=== PATIENT | female | born 2000 | race Caucasian/White ===

== ENCOUNTER 2022-05-12 07:03 | Emergency (ER) | payer OTHER ==
[2022-05-12] MEDS ORDERED: CYCLOBENZAPRINE 10 MG TAB PO STA (07:38)
[2022-05-12] MEDS ORDERED: KETOROLAC 15 MG/ML 1 ML VIAL IVP STA (07:38)
[2022-05-12] MEDS ORDERED: predniSONE 50 MG TAB PO STA (07:38)
--- NOTE | 2022-05-12 07:41 | ED ---
Back Pain HPI - General Chief Complaint: Back Pain/Injury Stated Complaint: back pain Time Seen by Provider: 05/12/22 07:20 Source: patient Limitations: no limitations - History of Present Illness Initial Comments: 21 year old female presents with reproducible low back pain. States she was at work bending when she heard a pop and started having pain running down her left leg. No saddle anesthesia. No bowel or bladder dysfunction. No fever. No le weakness. no concern for - Related Data Home Medications Medication Instructions Recorded Confirmed Naproxen Sodium [Aleve] 220 mg PO BID PRN 05/12/22 05/12/22 Previous Rx's Medication Instructions Recorded Cyclobenzaprine [Flexeril] 10 mg PO TID PRN #20 tab 05/12/22 Ibuprofen [Motrin] 600 mg PO Q8HR PRN #30 tab 05/12/22 Allergies Allergy/AdvReac Type Severity Reaction Status Date / Time No Known Allergies Allergy Verified 05/12/22 07:38 Review of Systems ROS Statement: Those systems with pertinent positive or pertinent negative responses have been documented in the HPI. ROS Other: All systems not noted in ROS Statement are negative. Past Medical History Past Medical History: No Reported History History of Any Multi-Drug Resistant Organisms: None Reported Past Surgical History: Tonsillectomy Past Psychological History: No Psychological Hx Reported Smoking Status: Vaper Past Alcohol Use History: None Reported Past Drug Use History: None Reported General Exam Limitations: no limitations General appearance: alert, in no apparent distress Head exam: Present: atraumatic, normocephalic, normal inspection Eye exam: Present: normal appearance, PERRL, EOMI. Absent: scleral icterus, conjunctival injection, periorbital swelling ENT exam: Present: normal exam, mucous membranes moist Neck exam: Present: normal inspection. Absent: tenderness, meningismus, lymphadenopathy Respiratory exam: Present: normal lung sounds bilaterally. Absent: respiratory distress, wheezes, rales, rhonchi, stridor Cardiovascular Exam: Present: regular rate, normal rhythm, normal heart sounds. Absent: systolic murmur, diastolic murmur, rubs, gallop, clicks GI/Abdominal exam: Present: soft, normal bowel sounds. Absent: distended, tenderness, guarding, rebound, rigid Extremities exam: Present: normal inspection, full ROM, normal capillary refill. Absent: tenderness, pedal edema, joint swelling, calf tenderness Back exam: Present: CVA tenderness (L), paraspinal tenderness Neurological exam: Present: alert, oriented X3, CN II-XII intact Psychiatric exam: Present: normal affect, normal mood Skin exam: Present: warm, dry, intact, normal color. Absent: rash Course Vital Signs 05/12/22 05/12/22 07:17 08:00 Temperature 98.2 F 97.9 F Pulse Rate 99 93 Respiratory 20 18 Rate Blood Pressure 138/78 113/61 O2 Sat by Pulse 97 96 Oximetry Medical Decision Making - Medical Decision Making Was pt. sent in by a medical professional or institution (, [facility], [facility]ELLER, urgent care, hospital, or intermediate...) When possible be specific @ -No Did you speak to anyone other than the patient for history (EMS, parent, family, police, friend...)? What history was obtained from this source @ -No Did you review nursing and triage notes (agree or disagree)? Why? @ -I reviewed and agree with nursing and triage notes Were old charts reviewed (outside hosp., previous admission, EMS record, old EKG, old radiological studies, urgent care reports/EKG's, intermediate records)? Report findings @ -No old charts were reviewed Differential Diagnosis (chest pain, altered mental status, abdominal pain women, abdominal pain men, vaginal bleeding, weakness, fever, dyspnea, syncope, headache, dizziness, GI bleed, back pain, seizure, CVA, palpatations, mental health, musculoskeletal)? @ -mechanical back pain, sciatica, lumbar radiculopathy EKG interpreted by me (3pts min.). @ -No X-rays interpreted by me (1pt min.). @ -None done CT interpreted by me (1pt min.). @ -None done U/S interpreted by me (1pt. min.). @ -None done What testing was considered but not performed or refused? (CT, X-rays, U/S, labs)? Why? @ -None What meds were considered but not given or refused? Why? @ -None Did you discuss the management of the patient with other professionals (professionals i.e. [facility] Walsh, [facility] B[facility]ELLER, lab, RT, psych nurse, social sciences research scientist, parking enforcement technician, teacher, fisheries officer, case packer and sealer)? Give summary @ -No Was smoking cessation discussed for >3mins.? @ -No Was critical care preformed (if so, how long)? @ -No Were there social determinants of health that impacted care today? How? (Homelessness, low income, unemployed, alcoholism, drug addiction, transportation, low edu. Level, literacy, decrease access to med. care, nursing home, rehab)? @ -No Was there de-escalation of care discussed even if they declined (Discuss DNR or withdrawal of care, Hospice)? DNR status @ -No What co-morbidities impacted this encounter? (DM, HTN, Smoking, COPD, CAD, Cancer, CVA, ARF, Chemo, Hep., AIDS, mental health diagnosis, sleep apnea, morbid obesity)? @ -Obesity Was patient admitted / discharged? Hospital course, mention meds given and route, prescriptions, significant lab abnormalities, going to OR and other pertinent info. @ -Discharged Undiagnosed new problem with uncertain prognosis? @ -yes Drug Therapy requiring intensive monitoring for toxicity (Heparin, Nitro, Insulin, Cardizem)? @ -No Were any procedures done? @ -No Diagnosis/symptom? @ -acute mechanical back pain, lumbar radiculopathy Acute, or Chronic, or Acute on Chronic? @ -acute Uncomplicated (without systemic symptoms) or Complicated (systemic symptoms)? @ -complicated Side effects of treatment? @ -No Exacerbation, Progression, or Severe Exacerbation? @ -No Poses a threat to life or bodily function? How? (Chest pain, [place], [place], pneumonia, PE, COPD, DKA, ARF, appy, cholecystitis, CVA, Diverticulitis, Homicidal, Suicidal, threat to staff... and all critical care pts) @ -No Disposition Clinical Impression: Mechanical back pain Disposition: HOME SELF-CARE Condition: Stable Instructions (If sedation given, give patient instructions): Acute Low Back Pain (ED) Additional Instructions: Please take the anti-inflammatory and muscle relaxer as directed. Use a heating pad. Follow up with your primary care doctor. If your symptoms continue you may need imaging. Return for any new or worsening symptoms Prescriptions: Cyclobenzaprine [Flexeril] 10 mg PO TID PRN #20 tab PRN Reason: Muscle Spasm Ibuprofen [Motrin] 600 mg PO Q8HR PRN #30 tab PRN Reason: Pain Is patient prescribed a controlled substance at d/c from ED?: No Referrals: None,Stated [Primary Care Provider] - 1-2 days Time of Disposition: 07:45
[2022-05-12 08:08] VITALS: BP 113/61; PULSE 93; RESP 18; TEMP 97.9
== END 2022-05-12 08:07 | disposition home or self-care (01) ==
LOC: EC 07:03
DX: M54.50 Low back pain, unspecified (principal); F17.290 Nicotine dependence, other tobacco product, uncomplicated; Z90.89 Acquired absence of other organs; X50.1XXA Overexertion from prolonged static or awkward postures, initial encounter; Y93.89 Activity, other specified; Y99.0 Civilian activity done for income or pay
CPT/HCPCS: 99283; 96374; J1885; J7512

== ENCOUNTER 2023-06-12 15:01 | Emergency (ER) | payer OTHER ==
--- NOTE | 2023-06-12 15:07 | ED ---
Back Pain HPI - General Source: patient, RN notes reviewed Mode of arrival: ambulatory Limitations: no limitations - History of Present Illness MD Complaint: back pain <Pricilla Lang - Last Filed: 06/12/23 15:06> - General Source: patient, RN notes reviewed <Corrine Garcia - Last Filed: 06/12/23 17:52> - General Chief Complaint: Back Pain/Injury Stated Complaint: Lower Back Pain Time Seen by Provider: 06/12/23 15:06 - History of Present Illness Initial Comments: Quick Note: This is a 22-year-old female who presents to the emergency department for lower back pain. States that she pulled a muscle in her back about a year ago and has not been healing well since. However pain got worse about a week ago. Denies any new injuries. Denies any loss of bowel/bladder control or saddle anesthesia. (Pricilla Lang) Patient is a 22-year-old female presenting with chief complaint of low back pain. 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 She was referred to physical therapy but states she never went. 1 week ago the low back pain began to feel worse without known new trauma or injury. Denies loss of bowel/bladder control, numbness tingling or weakness in the legs, fever, dysuria, urinary frequency or urgency. Patient has been taking Aleve with little relief. Last NSAID use 6 hours ago. Patient denies . (Corrine Garcia) - Related Data Home Medications Medication Instructions Recorded Confirmed Naproxen Sodium [Aleve] 220 mg PO BID PRN 05/12/22 05/12/22 Previous Rx's Medication Instructions Recorded Cyclobenzaprine [Flexeril] 10 mg PO TID PRN #20 tab 05/12/22 Ibuprofen [Motrin] 600 mg PO Q8HR PRN #30 tab 05/12/22 Cyclobenzaprine [Flexeril] 10 mg PO TID PRN #15 tab 06/12/23 Lidocaine 5% Patch [Lidoderm 5% 1 each TP DAILY PRN #7 patch 06/12/23 Patch] Naproxen [Naprosyn] 500 mg PO Q12HR PRN 7 Days #14 06/12/23 tablet Allergies Allergy/AdvReac Type Severity Reaction Status Date / Time No Known Allergies Allergy Verified 06/12/23 15:20 Review of Systems ROS Other: All systems not noted in ROS Statement are negative. <Pricilla Lang - Last Filed: 06/12/23 15:06> ROS Other: All systems not noted in ROS Statement are negative. <Corrine Garcia - Last Filed: 06/12/23 17:52> ROS Statement: Those systems with pertinent positive or pertinent negative responses have been documented in the HPI. Past Medical History Past Medical History: No Reported History History of Any Multi-Drug Resistant Organisms: None Reported Past Surgical History: Tonsillectomy Past Psychological History: No Psychological Hx Reported Smoking Status: Vaper Past Alcohol Use History: None Reported Past Drug Use History: None Reported <Pricilla Lang - Last Filed: 06/12/23 15:06> General Exam <Pricilla Lang - Last Filed: 06/12/23 15:06> General appearance: alert, in no apparent distress Respiratory exam: Present: normal lung sounds bilaterally. Absent: respiratory distress, wheezes, rales, rhonchi, stridor Cardiovascular Exam: Present: regular rate, normal rhythm, normal heart sounds. Absent: systolic murmur, diastolic murmur, rubs, gallop, clicks Extremities exam: Present: normal inspection, full ROM, normal capillary refill. Absent: tenderness, pedal edema, joint swelling, calf tenderness Back exam: Present: normal inspection, full ROM, tenderness (Diffuse lumbar pa raspinal tenderness. No point tenderness. full range of motion and strength of bilateral lower extremities. Full sensation of bilateral lower extremities. No saddle anesthesia.), paraspinal tenderness. Absent: CVA tenderness (R), CVA tenderness (L), rash noted Psychiatric exam: Present: normal affect, normal mood Skin exam: Present: warm, dry, intact, normal color. Absent: rash <Corrine Garcia - Last Filed: 06/12/23 17:52> - General Exam Comments Initial Comments: Visual Physical Exam Vital signs reviewed General: Well-appearing, nontoxic, no acute distress. Head: Normocephalic, atraumatic Eyes: PERRLA, EOMI ENT: Airway patent Chest: Nonlabored breathing Skin: No visual rash, normal skin tone Neuro: Alert and oriented 3 Musculoskeletal: No gross abnormalities (Pricilla Lang) Course Vital Signs 06/12/23 15:20 Temperature 97 F L Pulse Rate 84 Respiratory 18 Rate Blood Pressure 153/90 O2 Sat by Pulse 99 Oximetry Medical Decision Making <Pricilla Lang - Last Filed: 06/12/23 15:06> <Corrine Garcia - Last Filed: 06/12/23 17:52> - Medical Decision Making I performed the QuickNote portion of this chart. Signed Pricilla Lang PA-C. (Pricilla Lang) Was pt. sent in by a medical professional or institution ([facility], POWER SYSTEMS ENGINEER, urgent care, hospital, or skilled nursing...) When possible be specific @ -No Did you speak to anyone other than the patient for history (EMS, parent, family, police, friend...)? What history was obtained from this source @ -No Did you review nursing and triage notes (agree or disagree)? Why? @ -I reviewed and agree with nursing and triage notes Were old charts reviewed (outside hosp., previous admission, EMS record, old EKG, old radiological studies, urgent care reports/EKG's, skilled nursing records)? Report findings @ -No old charts were reviewed Differential Diagnosis (chest pain, altered mental status, abdominal pain women, abdominal pain men, vaginal bleeding, weakness, fever, dyspnea, syncope, headache, dizziness, GI bleed, back pain, seizure, CVA, palpatations, mental health, musculoskeletal)? @ -Differential Musculoskeletal Muscular strain, contusion, ligament sprain, fracture, arthritis, septic arthritis, bursitis, cellulitis, muscle spasm, nerve compression, DVT, arterial occlusion, herpes zoster, electrolyte abnormality, tumor.... This is not meant to be in all inclusive list EKG interpreted by me (3pts min.). @ -None X-rays interpreted by me (1pt min.). @ -Lumbar x-ray reveals no acute process CT interpreted by me (1pt min.). @ -None done U/S interpreted by me (1pt. min.). @ -None done What testing was considered but not performed or refused? (CT, X-rays, U/S, labs)? Why? @ -None What meds were considered but not given or refused? Why? @ -None Did you discuss the management of the patient with other professionals (professionals i.e. , PA, POWER SYSTEMS ENGINEER, lab, RT, psych nurse, social media specialist, cloth laminating supervisor, teacher, police officer booking, environmental sustainability manager)? Give summary @ -No Was smoking cessation discussed for >3mins.? @ -No Was critical care preformed (if so, how long)? @ -No Were there social determinants of health that impacted care today? How? ( Homelessness, low income, unemployed, alcoholism, drug addiction, transportation, low edu. Level, literacy, decrease access to med. care, detention, rehab)? @ -No Was there de-escalation of care discussed even if they declined (Discuss DNR or withdrawal of care, Hospice)? DNR status @ -No What co-morbidities impacted this encounter? (DM, HTN, Smoking, COPD, CAD, Cancer, CVA, ARF, Chemo, Hep., AIDS, mental health diagnosis, sleep apnea, morbid obesity)? @ -None Was patient admitted / discharged? Hospital course, mention meds given and route, prescriptions, significant lab abnormalities, going to OR and other pertinent info. @ -Patient was discharged. Patient was seen and evaluated for low back pain worsening for the past symptoms. Patient is neurovascularly intact. X-ray reveals no acute process. Pain controlled with Toradol and dexamethasone. Urine performed to rule out urinary etiology and was positive for minimal white blood cells. Culture sent. Diagnosis of back strain discussed with patient. Alarm symptoms discussed. Prescribed lidocaine patches, naproxen and Flexeril. patient discharged in stable condition. Case discussed with Dr. Coronado. Undiagnosed new problem with uncertain prognosis? @ -No Drug Therapy requiring intensive monitoring for toxicity (Heparin, Nitro, Insulin, Cardizem)? @ -No Were any procedures done? @ -No Diagnosis/symptom? @ -Low back strain Acute, or Chronic, or Acute on Chronic? @ -Acute Uncomplicated (without systemic symptoms) or Complicated (systemic symptoms)? @ -Uncomplicated Side effects of treatment? @ -No Exacerbation, Progression, or Severe Exacerbation? @ -No Poses a threat to life or bodily function? How? (Chest pain, [place], [place], pneumonia, PE, COPD, DKA, ARF, appy, cholecystitis, CVA, Diverticulitis, Homicidal, Suicidal, threat to staff... and all critical care pts) @ -No (Corrine Garcia) - Lab Data Lab Results 06/12/23 Range/Units 16:25 Urine Color Yellow Urine Appearance Clear (Clear) Urine pH 6.0 (5.0-8.0) Ur Specific [place] 1.027 (1.001-1.035) Urine Protein Negative (Negative) Urine Glucose (UA) Negative (Negative) Urine Ketones Negative (Negative) Urine Blood Negative (Negative) Urine Nitrite Negative (Negative) Urine Bilirubin Negative (Negative) Urine Urobilinogen <2.0 (<2.0) mg/dL Ur Leukocyte Esterase Moderate H (Negative) Urine RBC 2 (0-5) /hpf Urine WBC 10 H (0-5) /hpf Ur Squamous Epith Cells 3 (0-4) /hpf Urine Bacteria Occasional H (None) /hpf Urine Mucus Rare H (None) /hpf Disposition <Pricilla Lang - Last Filed: 06/12/23 15:06> Is patient prescribed a controlled substance at d/c from ED?: No Time of Disposition: 17:49 <Corrine Garcia - Last Filed: 06/12/23 17:52> Clinical Impression: Low back strain Disposition: HOME SELF-CARE Condition: Stable Instructions (If sedation given, give patient instructions): Acute Low Back Pain (ED) Additional Instructions: Please return to the Emergency Department if symptoms worsen or any other concerns. Prescriptions: Cyclobenzaprine [Flexeril] 10 mg PO TID PRN #15 tab PRN Reason: Muscle Spasm Lidocaine 5% Patch [Lidoderm 5% Patch] 1 each TP DAILY PRN #7 patch PRN Reason: Pain Naproxen [Naprosyn] 500 mg PO Q12HR PRN 7 Days #14 tablet PRN Reason: Pain Referrals: None,Stated [Primary Care Provider] - 1-2 days
[2023-06-12 15:42] VITALS: BP 153/90; PULSE 84; RESP 18; TEMP 97
[2023-06-12] MEDS: KETOROLAC 15 MG/ML 1 ML VIAL IM STA (16:33)
[2023-06-12] MEDS: DEXAMETHASONE SOD PHOSPHATE 10 MG/ML 1 ML VIAL IM STA (16:34)
--- NOTE | 2023-06-12 16:46 | XR ---
Lumbar spine HISTORY: Back pain COMPARISON: None TECHNIQUE: 3 views lumbar spine were obtained FINDINGS: The lumbar vertebral segments are normal in height and alignment and there is no fracture or subluxat ion. There is no significant degenerative disc disease. The disc spaces are well-maintained. There is no s pondylolisthesis. The sacrum and SI joints normal. IMPRESSION: No significant abnormality seen.
[2023-06-12 17:41] LABS: Appearance,Urine Clear (Clear); Bacteria,Urine Occasional /hpf; Bilirubin,Urine Negative (Negative); Blood,Urine Negative (Negative); Color,Urine Yellow; Glucose,Urine (UA) Negative (Negative); Ketones,Urine Negative (Negative); Leukocyte Esterase,Urine Moderate (Negative); Mucus,Urine Rare /hpf; Nitrite,Urine Negative (Negative); Protein,Urine Negative (Negative); RBC,Urine 2 /hpf (0-5); Specific Gravity,Urine 1.027 (1.001-1.035); Squamous Epithelial Cell,Urine 3 /hpf (0-4); Urobilinogen,Urine <2.0 mg/dL (<2.0); WBC,Urine 10 /hpf (0-5)
== END 2023-06-12 17:56 | disposition home or self-care (01) ==
LOC: EC 15:01
DX: S39.012A Strain of muscle, fascia and tendon of lower back, initial encounter (principal); F17.290 Nicotine dependence, other tobacco product, uncomplicated; X58.XXXA Exposure to other specified factors, initial encounter
CPT/HCPCS: 81001; 87086; 72100; 99284; 96372 ×2; J1100; J1885

== ENCOUNTER 2023-12-31 15:39 | Emergency (ER) | payer OTHER ==
[2023-12-31 15:46] VITALS: RESP 18; TEMP 98.7
--- NOTE | 2023-12-31 16:21 | ED ---
Back Pain HPI - General Chief Complaint: Back Pain/Injury Stated Complaint: back pain Time Seen by Provider: 12/31/23 15:54 Source: patient, RN notes reviewed Limitations: no limitations - History of Present Illness Initial Comments: This is a 23-year-old female presenting with low back pain x 1 day. Patient states right side pain is worse with twisting and standing upright. Patient also endorses "inflammation" in her epigastric region with burning traveling up her esophagus at times. Patient denies recent trauma, heavy lifting or known cause of pain. Endorses use of antacids and Aleve yesterday with minimal relief. Denies radiculopathy, distal paresthesia, saddle paresthesia, urinary incontinence/retention. Denies urinary symptoms, N/V/D, chest pain, dyspnea. MD Complaint: back pain Onset/Timin -: days(s) Radiation: abdomen Severity scale (1-10): 8 - Related Data Previous Rx's Medication Instructions Recorded Cyclobenzaprine [Flexeril] 10 mg PO TID PRN #15 tab 06/12/23 Lidocaine 5% Patch [Lidoderm 5% 1 each TP DAILY PRN #7 patch 06/12/23 Patch] Naproxen [Naprosyn] 500 mg PO Q12HR PRN 7 Days #14 06/12/23 tablet Famotidine [Pepcid] 20 mg PO BID #28 tablet 12/31/23 Ibuprofen [Motrin] 800 mg PO Q8HR PRN #30 tab 12/31/23 Omeprazole [PriLOSEC] 20 mg PO AC-BRKFST #14 cap 12/31/23 Orphenadrine [Norflex] 100 mg PO Q12H #14 tab 12/31/23 Allergies Allergy/AdvReac Type Severity Reaction Status Date / Time No Known Allergies Allergy Verified 12/31/23 15:42 Review of Systems ROS Statement: Those systems with pertinent positive or pertinent negative responses have been documented in the HPI. ROS Other: All systems not noted in ROS Statement are negative. Past Medical History Past Medical History: No Reported History History of Any Multi-Drug Resistant Organisms: None Reported Past Surgical History: Tonsillectomy Past Psychological History: No Psychological Hx Reported Smoking Status: Vaper Past Alcohol Use History: Occasional Past Drug Use History: None Reported General Exam Limitations: no limitations General appearance: alert, in no apparent distress Head exam: Present: atraumatic, normocephalic, normal inspection Eye exam: Present: normal appearance, PERRL, EOMI. Absent: scleral icterus, conjunctival injection, periorbital swelling ENT exam: Present: normal exam, mucous membranes moist Neck exam: Present: normal inspection. Absent: tenderness, meningismus, lymphadenopathy Respiratory exam: Present: normal lung sounds bilaterally. Absent: respiratory distress, wheezes, rales, rhonchi, stridor Cardiovascular Exam: Present: regular rate, normal rhythm, normal heart sounds. Absent: systolic murmur, diastolic murmur, rubs, gallop, clicks GI/Abdominal exam: Present: soft, tenderness (Positive epigastric tenderness without guarding. Negative Moreno sign), normal bowel sounds. Absent: distended, guarding, rebound, rigid Extremities exam: Present: normal inspection, full ROM, normal capillary refill. Absent: tenderness, pedal edema, joint swelling, calf tenderness Back exam: Present: normal inspection, muscle spasm, paraspinal tenderness (Positive right thoracic/lumbar paraspinal tenderness/muscle spasm.). Absent: CVA tenderness (R), CVA tenderness (L), vertebral tenderness Neurological exam: Present: alert, oriented X3, CN II-XII intact Psychiatric exam: Present: normal affect, normal mood Skin exam: Present: warm, dry, intact, normal color. Absent: rash Course Vital Signs 12/31/23 15:43 Temperature 98.7 F Pulse Rate 112 H Respiratory 18 Rate Blood Pressure 159/91 O2 Sat by Pulse 95 Oximetry Medical Decision Making - Medical Decision Making Was pt. sent in by a medical professional or institution (, PA, LIGHTNING PROTECTION INSTALLER, urgent care, hospital, or assisted...) When possible be specific @ -No Did you speak to anyone other than the patient for history (EMS, parent, family, police, friend...)? What history was obtained from this source @ -No Did you review nursing and triage notes (agree or disagree)? Why? @ -I reviewed and agree with nursing and triage notes Were old charts reviewed (outside hosp., previous admission, EMS record, old EKG, old radiological studies, urgent care reports/EKG's, assisted records)? Report findings @ -No old charts were reviewed Differential Diagnosis (chest pain, altered mental status, abdominal pain women, abdominal pain men, vaginal bleeding, weakness, fever, dyspnea, syncope, headache, dizziness, GI bleed, back pain, seizure, CVA, palpatations, mental health, musculoskeletal)? @ -Differential Back Pain: Strain, zoster, cauda equina syndrome, epidural abscess, vertebral osteomyelitis, discitis, fracture, subluxation, disc herniation, DJD, spinal stenosis, dissection, AAA, pancreatitis, peptic ulcer disease, pyelonephritis, kidney stone, this is not meant to be an all-inclusive list. Differential Abdominal Pain Women: Appendicitis, Cholecystitis, diverticulosis, ischemic bowel, pancreatitis, hepatitis, UTI, gastroenteritis, AAA, incarcerated hernia, bowel obstruction, constipation, inflammatory bowel, hepatitis, peptic ulcer disease, splenic infarction, perforated viscus, vulvitis, ovarian torsion, PID, kidney stone, placenta abruption, this is not meant to be an all-inclusive list EKG interpreted by me (3pts min.). @ -Not done X-rays interpreted by me (1pt min.). @ -Lumbar x-ray reveals no obvious fractures or dislocation. CT interpreted by me (1pt min.). @ -None done U/S interpreted by me (1pt. min.). @ -None done What testing was considered but not performed or refused? (CT, X-rays, U/S, labs)? Why? @ -None What meds were considered but not given or refused? Why? @ -None Did you discuss the management of the patient with other professionals (professionals i.e. , PA, LIGHTNING PROTECTION INSTALLER, lab, RT, psych nurse, neonatal social worker, computer lab assistant, teacher, chief analytics officer, pillowcase turner)? Give summary @ -No Was smoking cessation discussed for >3mins.? @ -No Was critical care preformed (if so, how long)? @ -No Were there social determinants of health that impacted care today? How? (Homelessness, low income, unemployed, alcoholism, drug addiction, transportation, low edu. Level, literacy, decrease access to med. care, [facility], rehab)? @ -No Was there de-escalation of care discussed even if they declined (Discuss DNR or withdrawal of care, Hospice)? DNR status @ -No What co-morbidities impacted this encounter? (DM, HTN, Smoking, COPD, CAD, Cancer, CVA, ARF, Chemo, Hep., AIDS, mental health diagnosis, sleep apnea, morbid obesity)? @ -None Was patient admitted / discharged? Hospital course, mention meds given and route, prescriptions, significant lab abnormalities, going to OR and other [facility] info. @ -Discharge. Lumbar x-ray was unremarkable. Patient notes lower back and epigastric improvement with IV Toradol, Norflex, Pepcid and Protonix. P.o. equivalent of all medication sent to pharmacy for ongoing care. Work note with lifting restrictions provided upon request. Undiagnosed new problem with uncertain prognosis? @ -No Drug Therapy requiring intensive monitoring for toxicity (Heparin, Nitro, Insulin, Cardizem)? @ -No Were any procedures done? @ -No Diagnosis/symptom? @ -Lumbar strain, peptic ulcer disease/gastritis Acute, or Chronic, or Acute on Chronic? @ -Acute Uncomplicated (without systemic symptoms) or Complicated (systemic symptoms)? @ -Uncomplicated Side effects of treatment? @ -No Exacerbation, Progression, or Severe Exacerbation? @ -No Poses a threat to life or bodily function? How? (Chest pain, USA, PR, pneumonia, PE, COPD, DKA, ARF, appy, cholecystitis, CVA, Diverticulitis, Homicidal, Suicidal, threat to staff... and all critical care pts) @ -No Disposition Clinical Impression: PUD (peptic ulcer disease), Strain of lumbar region Disposition: HOME SELF-CARE Condition: Good Instructions (If sedation given, give patient instructions): Gastritis (ED), Acute Low Back Pain (ED) Prescriptions: Ibuprofen [Motrin] 800 mg PO Q8HR PRN #30 tab PRN Reason: Pain Orphenadrine [Norflex] 100 mg PO Q12H #14 tab Famotidine [Pepcid] 20 mg PO BID #28 tablet Omeprazole [PriLOSEC] 20 mg PO AC-BRKFST #14 cap Is patient prescribed a controlled substance at d/c from ED?: No Referrals: None,Stated [Primary Care Provider] - 1-2 days Time of Disposition: 18:35
--- NOTE | 2023-12-31 16:37 | XR ---
EXAMINATION TYPE: XR lumbar spine 2 or 3V DATE OF EXAM: 12/31/2023 4:31 PM COMPARISON: 06/12/2023 CLINICAL INDICATION: Female, 23 years old with history of Reproducible low back pain, TECHNIQUE: XR lumbar spine 2 or 3V view(s) obtained. FINDINGS: There are 5 lumbar-type vertebral bodies. Pedicles are intact. Disc height and vertebral body heights are preserved. There is straightening of the lumbar spine sagittal plane. No acute osseous abnormali ty radiographically. IMPRESSION: 1. No acute osseous abnormality lumbar spine [facility], , 12/31/2023 4:34 PM
[2023-12-31] MEDS: FAMOTIDINE 20 MG/2 ML VIAL IV STA (18:07)
[2023-12-31] MEDS: KETOROLAC 15 MG/ML 1 ML VIAL IVP STA (18:07)
[2023-12-31] MEDS: PANTOPRAZOLE 40 MG/10 ML VIAL IVP STA (18:08)
[2023-12-31] MEDS: ORPHENADRINE 30 MG/ML 2 ML VIAL IVP STA (18:09)
[2023-12-31 18:55] VITALS: BP 110/74; PULSE 83
== END 2023-12-31 18:55 | disposition home or self-care (01) ==
LOC: EC 15:39
DX: S39.012A Strain of muscle, fascia and tendon of lower back, initial encounter (principal); K27.9 Peptic ulcer, site unspecified, unspecified as acute or chronic, without hemorrhage or perforation; F17.290 Nicotine dependence, other tobacco product, uncomplicated; X58.XXXA Exposure to other specified factors, initial encounter
CPT/HCPCS: 72100; 99283; 96374; 96375 ×3; J2360; J3490; J1885; J2470